=== PATIENT | male | born 1960 | race Caucasian/White ===

== ENCOUNTER 2020-08-18 05:40 | Outpatient (CLI) | payer BC, OTHER ==
[~2020-08-18] VITALS: Ht 177 cm; Wt 75.4 kg
[2020-08-18] MEDS ORDERED: METF-399 PO (10:26)
== END 2020-08-18 10:30 | disposition home or self-care (01) ==
LOC: PREOP 05:40
PROVIDERS: ATTEND Internal Medicine
DX: Z01.818 Encounter for other preprocedural examination (principal)

== ENCOUNTER → 2020-08-24 | Outpatient (CLI) | payer BC ==
[~2020-08-24] MED LIST: METF-399 PO
== END ==
LOC: LABNPT 05:59
PROVIDERS: ATTEND Internal Medicine
DX: Z01.818 Encounter for other preprocedural examination (principal); Z01.812 Encounter for preprocedural laboratory examination; Z12.11 Encounter for screening for malignant neoplasm of colon; Z20.828 Contact with and (suspected) exposure to other viral communicable diseases
CPT/HCPCS: 87635

== ENCOUNTER 2020-08-26 08:27 | Day surgery (SDC) | payer BC, OTHER ==
--- NOTE | 2020-08-17 16:29 | HISTORY AND PHYSICAL ---
DATE OF SERVICE: COLONOSCOPY HISTORY AND PHYSICAL HISTORY OF PRESENT ILLNESS: The patient is a 60-year-old white female referred by Dr. West for his first screening colonoscopy. He does report one uncle, who succumbed to colon cancer in his early 60s. He is not aware of any other family history of colon polyps or cancer. He denies bright red blood per rectum, melena, change in bowel habits, change in weight or abdominal pain. PAST MEDICAL HISTORY: Significant for spontaneous tension pneumothorax in 1981 with no evidence for recurrence. 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 He apparently was recently diagnosed with diabetes type 2 and was started on metformin, which he reports is tolerating currently 1 gram daily. PAST SURGICAL HISTORY: Noncontributory. FAMILY HISTORY: Uncle with colon cancer as noted above. Mother is living at the age of 80 with diabetes and father is living at age of 79, has emphysema and diabetes with an extensive smoking history. 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 REVIEW OF SYSTEMS: CONSTITUTIONAL: He denies night sweats, chills, fever or change in weight. PULMONARY: Denies cough, wheezing or shortness of breath. CARDIOVASCULAR: He denies dyspnea on exertion, chest discomfort, orthopnea, PND or pedal edema. PHYSICAL EXAMINATION: GENERAL: Reveals a white male, normal weight, who appears to be in no acute distress. VITAL SIGNS: Weight was 166 pounds, blood pressure 126/70. HEENT: Unremarkable. Mallampati 2 pharyngeal configuration. CHEST: Clear. CARDIOVASCULAR: Revealed a regular rate and rhythm without murmur, S3 or S4. ABDOMEN: Soft, supple without mass, organomegaly or tenderness. Bowel sounds positive in all 4 quadrants. EXTREMITIES: Reveal no cyanosis, clubbing or edema. ASSESSMENT AND PLAN: The patient is set up for screening colonoscopy on 08/26. Prep instructions with the [facility]-prep kit were given and questions were answered. I thank you for the referral of this pleasant gentleman. Job ID: [id number] DocumentID: [id number] Dictated Date: 08/17/2020 15:54:41 Cold Food Packer Date: 08/17/2020 16:28:57 Dictated By: FALGUNI HERRERA MD [facility]
[~2020-08-26] VITALS: Ht 177 cm; Wt 75.4 kg
[2020-08-26] VITALS (13 sets, daily range): BP systolic 110–189; BP diastolic 56–87
[2020-08-26] MEDS ORDERED: D5 LR IV SOLUTION 1,000 ML IV ONE (08:29)
[2020-08-26] MEDS ORDERED: D5 LR IV SOLUTION 1,000 ML IV STA (08:54)
[2020-08-26] MEDS ORDERED: fentaNYL INJECTION 100 MCG/2 ML AMP IVP ONE (09:00)
[2020-08-26] MEDS ORDERED: MIDAZOLAM 5 MG/5 ML (VERSED) VIAL IV ONE (09:00)
[2020-08-26] MEDS ORDERED: LIDOCAINE JELLY 2% 6 ML SYRINGE MM PRN (09:00)
[2020-08-26] MEDS ORDERED: LIDOCAINE JELLY 2% 6 ML SYRINGE ONE (09:16)
[2020-08-26] MEDS ORDERED: MIDAZOLAM 5 MG/5 ML (VERSED) VIAL ONE (09:17)
[2020-08-26] MEDS ORDERED: fentaNYL INJECTION 100 MCG/2 ML AMP ONE ×2 (09:17→09:52)
--- NOTE | 2020-08-26 09:57 | Pre-Op Note & Conscious Sedat ---
Pre-Operative Progress Note H&P Reviewed The H&P was reviewed, patient examined and no changes noted. Date H&P Reviewed: Aug 26, 2020 Time H&P Reviewed: 09:00 Conscious Sedation Pre-Proced ASA Score 2 For ASA 3 and 4: Consider anesthesia and medical clearance. Also, for patients with a history of failed moderate sedation consider anesthesia. Airway Lungs Heart ASA score ASA 1: a normal healthy patient ASA 2: a patient with a mild systemic disease (mid diabetes, controlled hypertension, obesity ASA 3: a patient with a severe systemic disease that limits activity (angina, COPD, prior Myocardial infarction) ASA 4: a patient with an incapacitating disease that is a constant threat to life (CHF, renal failure) ASA 5: a moribund patient not expected to survive 24 hrs. (ruptured aneurysm) ASA 6: a declared brain- patient whose organs are being harvested. For emergent operations, add the letter E after the classification Mallampati Classification Grade 2 Sedation Plan Analgesia, Amnesia, Plan communicated to team members, Discussed options with patient/fam, Discussed risks with patient/fam The patient is an appropriate candidate to undergo the planned procedure, sedation, and anesthesia. The patient immediately re-assessed prior to indication. FALGNUI HERRERA MD Aug 26, 2020 09:57
--- NOTE | 2020-08-26 21:24 | OPERATIVE REPORT ---
DATE OF SERVICE: 08/26/2020 COLONOSCOPY SUMMARY INDICATION FOR THE PROCEDURE: Screening colonoscopy. The patient deemed to be of higher than average risk due to family history for colon cancer. DESCRIPTION OF PROCEDURE: The patient was placed in the left lateral decubitus position. Prior to undergoing colonoscopy, digital rectal evaluation was performed. Anal sphincter tone was normal and the perianal reflexes intact. Prostate is anodular and normal in size with no tenderness reported. No abnormalities were noted to digital inspection of anal canal or distal rectal vault. The colonoscope was then inserted into the rectum and under direct visualization advanced to cecum. The cecum was identified by identification of the ileocecal valve and cecal strap. Photographic documentation was obtained. Quality of prep was good. The patient tolerated the procedure well. FINDINGS: There was no evidence for internal or external hemorrhoids and the rectum was unremarkable. The patient did have moderate to severe diverticular disease predominantly in the sigmoid colon but scattered throughout the entirety of the colon without evidence for diverticulitis. Present in the mid sigmoid colon was a 5 mm sessile polyp with adenomatous features. It was photographed and biopsied and ablated with no subsequent blood loss. A similar polyp was noted in the proximal sigmoid colon, 5 mm in size and sessile. It too was biopsied and ablated with no blood loss. Other than diverticular disease, the remainder of the colon including the descending colon, transverse colon, ascending colon and cecum were unremarkable. ASSESSMENT: Two 5-6 mm sessile adenomatous appearing polyps were removed, one from the proximal sigmoid colon and the other one from the mid sigmoid colon. As long as there is no evidence for dysplasia, we will be abdicating repeat surveillance colonoscopy in 3 years. Because of his moderate to severe diverticular disease and a diet that is relatively low in fiber, advised that he add fiber supplementation on a daily basis. I thank you for the referral of this pleasant gentleman. Job ID: [id number] DocumentID: [id number] Dictated Date: 08/26/2020 11:25:38 Specialist Icu Date: 08/26/2020 21:23:35 Dictated By: AFLGUNI HERRERA MD [facility]
== END 2020-08-26 11:15 | disposition home or self-care (01) ==
LOC: ENDO 08:27
PROVIDERS: ATTEND Internal Medicine
DX: Z12.11 Encounter for screening for malignant neoplasm of colon (principal); D12.5 Benign neoplasm of sigmoid colon; K63.5 Polyp of colon; K57.30 Diverticulosis of large intestine without perforation or abscess without bleeding; E11.9 Type 2 diabetes mellitus without complications; Z79.84 Long term (current) use of oral hypoglycemic drugs; Z89.021 Acquired absence of right finger(s); Z80.0 Family history of malignant neoplasm of digestive organs
CPT/HCPCS: 88305